=== PATIENT | female | born 1975 | race Caucasian/White ===

== ENCOUNTER 2016-08-24 19:45 | Emergency (ER) | payer BC ==
[2016-08-24] MEDS ORDERED: LYRICA100 MG/CAP PO (20:18)
[2016-08-24] MEDS ORDERED: NEURONTIN600 M1 PO (20:18)
[2016-08-24 20:39] LABS: BASO % 0.4 % (0-2); EOS % 3.8 % (0-7); EOSINOPHIL ABSOLUTE COUNT 0.3 tho/cmm (0.0-0.7); HCT-HEMATOCRIT 41.6 % (34.0-49.0); HGB-HEMOGLOBIN 13.8 gm/dl (12.0-15.5); IMMATURE GRANULOCYTES ABSOLUTE 0.04 tho/cmm (0-0.03); IMMATURE GRANULOCYTES PERCENT 0.4 % (0-0.3); LYMPH % 24.1 % (20-45); LYMPH ABSOLUTE COUNT 2.2 tho/cmm (0.8-4.5); MCH (MEAN CORPUSCULAR HGB) 29.6 pg (28.0-32.0); MCHC MEAN CORPUSCULAR HGB CONC 33.2 % (32.0-36.0); MCV (MEAN CELL VOLUME) 89.3 fl (82.0-96.0); MEAN PLATELET VOLUME 10.1 cmc (9.4-12.4); MONO % 9.5 % (0-12); MONOCYTE ABSOLUTE COUNT 0.9 tho/cmm (0.0-1.2); NEUTROPHIL ABSOLUTE COUNT 5.5 tho/cmm (1.6-8.0); NEUTROPHIL-AUTOMATED 5.5 tho/cmm (1.6-8.0); NEUTROPHILS % 61.8 % (40-80); PLATELET COUNT 258 tho/cmm (150-450); RED BLOOD COUNT 4.66 mil/cmm (4.00-5.20); RED CELL DISTRIBUTION WIDTH 15.1 % (12.4-16.4)
[2016-08-24 20:46] LABS: INR 0.9 INR (0.9-1.1); PROTHROMBIN TIME 10.8 SECONDS (9.0-13.6)
[2016-08-24 21:00] LABS: ALB/GLOB RATIO 1.1 (0.8-2.0); ALKALINE PHOSPHATASE 90 U/L (33-138); AMYLASE 39 U/L (20-90); ANION GAP 11 mmol/L (0-20); AST/SGOT 16 U/L (10-40); BILIRUBIN,TOTAL 0.2 mg/dl (0-1.5); BLOOD UREA NITROGEN 14 mg/dl (6-24); CALCIUM 9.4 mg/dl (8.5-10.5); CARBON DIOXIDE-VENOUS 28 mmol/L (22-32); CHLORIDE 109 mmol/l (96-110); CREATININE 0.81 mg/dl (0.50-1.10); GLUCOSE 80 mg/dL (70-110); LIPASE 68 U/L (73-393); SODIUM 144 mmol/L (135-145); eGFR VALUE FOR BLACK >90 mL/Min
[2016-08-24 21:02] LABS: ALT/SGPT 23 U/L (12-78)
[2016-08-24 21:06] LABS: PREGNANCY-SERUM NEGATIVE (NEGATIVE)
== END 2016-08-24 23:11 ==
LOC: EDMED 19:45
PROVIDERS: Emergency Medicine
DX: K52.9 Noninfective gastroenteritis and colitis, unspecified (principal); Z88.5 Allergy status to narcotic agent; Z88.0 Allergy status to penicillin; Z72.0 Tobacco use; Z86.73 Personal history of transient ischemic attack (TIA), and cerebral infarction without residual deficits; Z90.89 Acquired absence of other organs; Z98.890 Other specified postprocedural states
CPT/HCPCS: J7030; Q9967

== ENCOUNTER 2016-09-10 15:57 | Emergency (ER) | payer BC ==
[~2016-09-10 15:57] MED LIST: LYRICA100 MG/CAP PO; NEURONTIN600 M1 PO
[2016-09-10] MEDS ORDERED: NORCO 5-325 TA1 EACH PO (17:54)
[2016-09-10] MEDS ORDERED: CYCLOBENZAPRINE5 M1 PO (17:54)
== END 2016-09-10 18:09 ==
LOC: EDMED 15:57
DX: G89.29 Other chronic pain (principal); M54.5 Low back pain; F17.200 Nicotine dependence, unspecified, uncomplicated; Z90.49 Acquired absence of other specified parts of digestive tract
CPT/HCPCS: J1885; J2360